=== PATIENT | male | born 1955 | race Caucasian/White ===

== ENCOUNTER → 2017-01-31 | Outpatient (CLI) | payer BC ==
[~2017-01-31] MED LIST: BENICAR HCT 40-1 TAB PO; BENICAR PO; COMBIGAN EYE DRO5 ML OU; CYANOCOBAL1000 MCG/M INJ; DEMEROL50 MG PO; KLOR-CON PO; METOPROLOL SUCC50 MG PO; MICRO-K10 MEQ PO; NABUMETONE500 MG PO; PERCOCET 5-3251 TAB PO; POTASSIUM CHLO10 MEQ PO; PRISTIQ50 MG PO; SERTRALINE HCL50 MG PO; SUPER B COMPLEX1 CAP PO; TESTOSTERON100 MG/ML IM; TESTOSTERONE INJ; TOPROL XL 50 MG50 MG PO; TOPROL XL50 MG PO; VITAMIN B-1000 MCG/1 IJ; VITAMIN D50000 UNIT PO; ZESTORETIC 20-1 EAC1 PO; ZYRTEC PO; ZYRTEC10 M2 PO; [UNRECOGNIZED DRUG - REMARK]
--- NOTE | ~2017-01-31 | US128 ---
[id number] [facility]. [facility] [address] [place], [place] [address] [id number] O MR#: [id number] Acc #: [id number] NAME: SIMÓN BANSAL JR : 1955 SEX: M STUDY DATE/TIME: 01/31/2017 15:25 UNIT: [facility] ROOM: STUDY DESCRIPTION: Thyroid Attending Physician: Lino Watkins M.D. Referring Physician: Lino Wtakins M.D. Ordering Physician: Lino Watkins M.D. Primary Care Physician: Lino Watkins M.D. MEDICAL IMAGING REPORT This report is preliminary unless electronic signature is present EXAM Thyroid ultrasound, 01/31/2017. CLINICAL HISTORY Routine followup for previously diagnosed thyroid nodules. FINDINGS There is a single solid subcentimeter 9 mm nodule on the right unchanged since April 2015. There is a hypoechoic nodule at the junction of the left lobe and the isthmus about 9 x 6 x 7 mm, possibly cystic, and also unchanged since the prior exam. No new nodules are seen. IMPRESSION Stable bilateral small thyroid 9-10 mm nodules. No interval change since April 2015. Dictated by... Kevin Coburn M.D. THIS IS AN ELECTRONICALLY VERIFIED REPORT Kevin Coburn M.D. at 02/01/2017 3:52 PM PADMINI/paola TD: 02/01/2017 15:27 JOB #: [id number] MEDICAL IMAGING REPORT Page 1 of 1 COPY
== END | disposition home or self-care (01) ==
LOC: CGUS 15:00
DX: E04.2 Nontoxic multinodular goiter (principal)
CPT/HCPCS: 76536